=== PATIENT | female | born 1955 | race Caucasian/White ===

== ENCOUNTER → 2017-05-31 | Outpatient (CLI) | payer OTHER ==
[~2017-05-31] MED LIST: ACETAMINOPHEN325 M1 PO; ASPIRIN EC325 M1 PO; ASPIRIN325; COLACE 100 MG100 MG PO; ELIQUIS2.5 MG PO; ENOXAPARIN30 MG/0.1 INJECTION; ENOXAPARIN30 MG/0.3 SUBQ; FLEXERIL PO; HYDROCODONE-AP1 EAC6 PO; MELATONIN3 MG PO; METFORMIN HCL500 MG PO; MIRALAX255 GM; OXYCODONE HCL 55 MG PO; OXYIR5 MG PO; PERCOCET 5-3251 EACH PO; PIOGLITAZONE15 MG; STOOL SOFTENER1 EAC2 PO; TRAMADOL 50 MG50 MG PO; TYLENOL EX-STR500 M2 PO; TYLENOL325 MG PO
[2017-05-31 10:34] LABS: HEMATOCRIT 47.4 % (37.0-47.0); HEMOGLOBIN 15.5 gm/dL (12.0-15.0); MCH 29.6 pg (26.0-34.0); MCHC 32.6 g/dL (28.0-37.0); MCV 90.8 fL (80.0-100.0); MPV 8.7 fl. (7.2-11.1); RBC 5.22 mil/uL (4.20-5.00); RDW-CV 13.4 % (10.5-14.5); WBC 9.4 thou/uL (4.0-11.0)
== END ==
LOC: M.LAB 10:15
PROVIDERS: Orthopaedic Surgery
DX: M25.562 Pain in left knee (principal); M79.89 Other specified soft tissue disorders

== ENCOUNTER → 2017-06-02 | Outpatient (CLI) | payer OTHER | LOC: M.CT 06-01 11:58 | DX: M25.462 Effusion, left knee (principal); Z96.652 Presence of left artificial knee joint ==

== ENCOUNTER → 2017-08-10 | Outpatient (CLI) | payer OTHER ==
[2017-08-10 22:07] LABS: GLYCOHEMOGLOBIN (HGB A1C) 8.4 % (4.8-5.6)
== END ==
LOC: M.LAB 09:12
PROVIDERS: Orthopaedic Surgery
DX: R73.09 Other abnormal glucose (principal)

== ENCOUNTER 2017-08-15 06:28 | Inpatient (IN) | payer OTHER ==
[2017-08-02 09:20] LABS: ABSOLUTE EOSINOPHILS 0.1 thou/uL (0.0-0.7); ABSOLUTE LYMPHOCYTES 2.6 thou/uL (0.8-5.3); ABSOLUTE MONOCYTES 0.6 thou/uL (0.0-1.2); ABSOLUTE NEUTROPHILS 5.8 thou/uL (1.6-8.1); BASOPHILS 0.4 %; EOSINOPHILS 1.6 %; HEMATOCRIT 44.2 % (37.0-47.0); HEMOGLOBIN 14.8 gm/dL (12.0-15.0); LYMPHOCYTES 28.6 %; MCHC 33.5 g/dL (28.0-37.0); MCV 89.5 fL (80.0-100.0); MONOCYTES 6.4 %; MPV 8.3 fl. (7.2-11.1); NUCLEATED RBCS 0 /100WBC; PLATELET COUNT* 257 thou/uL (150-400); RBC 4.94 mil/uL (4.20-5.00); RDW-CV 13.3 % (10.5-14.5); WBC 9.2 thou/uL (4.0-11.0)
[2017-08-02 09:29] LABS: ALBUMIN 3.4 g/dL (3.4-5.0); CALCIUM 9.1 mg/dL (8.5-10.1); CREATININE 0.8 mg/dL (0.6-1.3); POTASSIUM 3.9 mmol/L (3.5-5.1); TOTAL BILIRUBIN 0.5 mg/dL (<0.1-1.0); TOTAL PROTEIN 7.5 g/dL (6.4-8.2)
[2017-08-02 10:30] LABS: ESR (SEDRATE) 8 mm/hr (0-30)
--- NOTE | 2017-08-02 16:20 | EKG ---
[place] [address] ELECTROCARDIOGRAM REPORT Name: SONGDEVORA Room: PRE IN [facility]#: [id number] Admission: Attend Phys: Janice Emanuel Discharge: Date of : 57 Report #: [id number] THIS REPORT FOR: //name// [facility] Test Date: 2017-08-02 Test Time: 09:29:39 Pat Name: DEVORA SONG Department: Room: Gender: F [employer]: : [id number] Requested By: Curtis Jasmine Order Number: [id number] Reading MD: Alonso Castillo Measurements Intervals [place] Rate: 77 P: 53 AL: 144 QRS: -49 QRSD: 103 T: 53 QT: 386 QTc: 437 Interpretive Statements Sinus rhythm Left anterior fascicular block Abnormal R-wave progression, late transition Electronically Signed On 08-02-2017 16:20:13 CDT by Alonso Castillo [email or web address] <ELECTRONICALLY SIGNED> By: Alonso Castillo MD, [facility] 08/02/17 1620 0929 09 Alonso Castillo MD, FACC /EPI
[~2017-08-15] VITALS: Ht 152.4 cm; Wt 86.2 kg
[~2017-08-15 06:28] MED LIST changes: -ELIQUIS2.5 MG PO; -HYDROCODONE-AP1 EAC6 PO; -METFORMIN HCL500 MG PO; -PIOGLITAZONE15 MG
[2017-08-22] MEDS ORDERED: METFORMIN HCL500 MG PO (06:19)
[2017-08-22] MEDS ORDERED: PIOGLITAZONE15 MG (06:20)
[2017-08-22 06:52] VITALS: BP 120/86
[2017-08-22 11:57] VITALS: BP 121/71
--- NOTE | 2017-08-22 12:28 | NUR ---
PATIENT TRANSFERRED FROM PACU TO ROOM 106. ALERT AND ORIETNED. VERY DROWSY. RATES PAIN 7/10. RESP 10 SAT 92% ON 3L. OXYIR GIVEN. ZOFRAN GIVEN. DRESSING TO LEFT KNEE DRY AND INTACT. SCD'S AND RIGHT SAMUEL IN PLACE. VSS. IVF INFUSING ORDERED. AT BEDSIDE. LUNCH PROVIDED. CALL LIGHT WITHIN REACH. WILL CONTINUE TO MONITOR.
--- NOTE | 2017-08-22 12:30 | NUR ---
RECIEVED O.T. ORDERS. WILL DEFER TO P.T. AND NURSING AT THIS TIME. PLEASE ORDER FURTHER O.T. SERVICES IF NEEDED.
[2017-08-22 15:20] VITALS: BP 106/75
--- NOTE | 2017-08-22 16:40 | NUR ---
PATIENT REMAINS ALERT AND ORIENTED. PAIN CONTROLLED WITH OXYIR AND HYDROCODONE. DRESSING TO LEFT KNEE DRY AND INTACT. IVF INFUSING. VOIDED X1 PER BEDPAN. TOLERATED MEAL. O2 AT 4L, SAT 96%. PATIENT WEARS CPAP AT HS. CONT PULSE OX IN PLACE. BED ALARM SET. SCD'S AND SAMUEL IN PLACE. POLAR CARE IN USE. WILL CONTINUE TO MONITOR.
[2017-08-22 20:30] VITALS: BP 99/64
[2017-08-23] VITALS (9 sets, daily range): BP systolic 86–115; BP diastolic 46–60
--- NOTE | 2017-08-23 04:47 | NUR ---
PATIENT REMAINS ALERT AND ORIENTED X4. PAIN CONTROLLED WITH PO MEDICATION. DRESSING TO LEFT KNEE DRY AND INTACT. IV PATENT IN THE LEFT FOREARM INFUSING AT 125 ML/HR. USING BEDPAN THROUGHOUT SHIFT. POLAR PACK IN PLACE. PATIENT WEARS CPAP AT HS. VITAL SIGNS STALE. OXYGEN STABLE ON 3 LITERS OF OXYGEN. CONTINUOUS PULS OX IN PLACE. SCD'S AND SAMUEL HOSE IN PLACE. HOURLY ROUNDING COMPLETE. BED ALARM ON. CALL LIGHT WITHIN REACH. NURSING WILL CONTINUE TO MONITOR.
[2017-08-23 05:14] LABS: HEMATOCRIT 34.7 % (37.0-47.0); HEMOGLOBIN 11.4 gm/dL (12.0-15.0); MCH 29.5 pg (26.0-34.0); MCHC 32.9 g/dL (28.0-37.0); MCV 89.8 fL (80.0-100.0); MPV 8.5 fl. (7.2-11.1); RBC 3.86 mil/uL (4.20-5.00); RDW-CV 13.6 % (10.5-14.5); WBC 12.3 thou/uL (4.0-11.0)
[2017-08-23 05:38] LABS: CALCIUM 8.3 mg/dL (8.5-10.1); CREATININE 0.8 mg/dL (0.6-1.3); POTASSIUM 4.5 mmol/L (3.5-5.1); TOTAL BILIRUBIN 0.4 mg/dL (<0.1-1.0)
--- NOTE | 2017-08-23 08:03 | OP ---
[address] [address] OPERATIVE REPORT Name: DUNCANDEVORA Mi Room: [address] IN ..#: [id number] Admission: 08/22/17 Attend Phys: Janice Emanuel Discharge: Date of : 57 Report #: [id number] THIS REPORT FOR: //name// CC: Marcin Jasmine DICTATED BY: Bogdan Roque DO DATE OF SERVICE: 08/22/2017 PREOPERATIVE DIAGNOSIS: Aseptic loosening, left total knee. POSTOPERATIVE DIAGNOSIS: Aseptic loosening, left total knee. SURGEON: Hussein Fuller DO. DETAIL ASSEMBLER: Sebastien Almeida DO, due to complexity of the case. SECOND ACCOUNT MANAGER B2B: Bogdan Roque DO. PROCEDURE PERFORMED: Revision left total knee arthroplasty with cemented Leo NexGen revision system. ANESTHESIA: General with local capsular block. ESTIMATED BLOOD LOSS: 250 mL. SPECIMENS REMOVED: Soft tissue sent for frozen section. COMPLICATIONS: None. ANTIBIOTICS: Two grams Ancef given intraoperatively after tissue sample sent. TOURNIQUET TIME: 85 minutes at 300. INDICATIONS: The patient is a 62-year-old female that underwent a left total knee arthroplasty many years ago. Unfortunately, she has developed loosening of her femoral component and a painful left total knee. She has been worked up extensively for infection. All results have been negative to this point. She presents today for the above-mentioned procedure. Risks, benefits, complications and alternatives to surgery have been reviewed and discussed with her and she is wishing to proceed. IMPLANTS UTILIZED: Leo NexGen complete knee solution, constrained size C femoral component with a 13 mm x 130 length stem [place] [address] OPERATIVE REPORT Name: DEVORA SONG Room: [address] IN [facility]#: [id number] Admission: 08/22/17 Attend Phys: Janice Emanuel Discharge: Date of : 57 Report #: [id number] distal augments, a size 2 tibial tray with a 10 mm x 75 mm stem extension, a 10-mm medial augment and two bags of Palacos cement with 1.5 grams of vancomycin powder and a 40-mm CCK poly. DESCRIPTION OF PROCEDURE: The patient was taken to the operating suite and placed supine on the OR table. She was given the benefit of general anesthetic. A well-padded tourniquet was placed on the left upper thigh. The patient was then prepped and draped in the usual sterile fashion. Prior to procedure, a timeout was taken confirming correct site, patient and procedure. Procedure began utilizing her prior midline incision. Dissection was carried down through skin and subcutaneous tissues to the level of the joint capsule. Other than scarring of the subcutaneous tissues, there was no sign of infection or necrotic tissue. The VMO and quad tendon was exposed. A second knife was used to perform a medial parapatellar arthrotomy. Significant amount of joint fluid was expressed. This was overall normal-appearing joint fluid. No gross purulence. There was a significant amount of scar tissue seen within the knee and abundant synovium. Once again, no signs of purulence or obvious infection. The medial subperiosteal sleeve was developed off the proximal tibia. The patella was subluxed laterally. The femoral component was completely loose and this was able to be extracted by hand. The poly did have some signs of wear along the anterior medial portion. There was fair amount of bone loss within the distal femur and fibrous ingrowth of tissue around this. This was debrided off. We then extracted the tibial component using flexible osteotome. This was relatively well fixed, but was able to be removed with minimal bone loss. There was a large cyst noted on the medial tibial condyle. This was curetted and all soft tissue was removed. All excess cement was removed as well. The patellar button was removed as well. Synovium was debulked and bone and soft tissue samples were sent for a stat gram stain and frozen section PMNs. This was found to come back negative on all tissue samples. At this time, antibiotics were given. The leg was Esmarched. Tourniquet was inflated up to 300 mmHg. We then proceeded on with revision. The tibial canal was sequentially reamed up to a size 10 mm reamer. Next, proximal tibia cutting block was pinned in place. Minimal bone cut was resected on the lateral side due to the large bone cyst on the medial condyle of the tibia. We took an additional 10 mm, allowing to fill this up with an augment. Cutting block was pinned in place and these cuts were then made. A trial tray was pinned in place. Alignment was used referencing the medial third tibial tubercle and mid talus. Proximal tibia was reamed appropriately and prepared with cruciform punch. Trial insert was then placed and this appeared to fit very well. We then proceeded to the distal tibia. This was sequentially reamed up to a size 13 and over reamed approximately to an 18. Due to the bone loss, it was elected to place 5-mm augments on the posterior condyles as well as a 5-mm augment on the lateral distal condyle as well as a 10-mm augment medially. The trial femur was then placed and this provided a very good fit. No additional bone was resected off the posterior condyles or distal femur. Trial femur and [facility] [address] [place] [address] OPERATIVE REPORT Name: DUNCANDEVORA Mi Room: [address] IN M.R.#: [id number] Admission: 08/22/17 Attend Phys: Janice Emanuel Discharge: Date of : 57 Report #: [id number] trial tibia were then placed. A 14-mm spacer was trialled and this allowed for full extension and good range of motion. All implants were then removed. The knee was thoroughly irrigated with sterile saline and a bone surfaces were cleared off. Cement was mixed on the back table. Components were assembled. Final components were placed with the tibial tray and stem followed by the femur. A 14-mm block was used for compression. All excess cement was removed. Knee was held in a single position while cement adequately cured. After the cement had hardened, a 12 and 14 mm poly were trialed. The 14 provided the best stability and this was placed and secured in place with a locking screw. The knee was again taken through range of motion and found to be very stable. Tourniquet was let down, hemostasis was obtained. Betadine wash was performed. TXA was placed in the wound and allowed to set for 3 minutes. knee was then irrigated. Gloves were changed and a chlorhexidine prep was performed around the incision on the knee. Capsule was closed with #1 Vicryl, followed by interrupted 2-0 Monocryl subcuticular and a running 3-0 Stratafix and Dermabond glue for skin. Sterile dressing was applied. The patient tolerated procedure well. She was transferred to PACU in good stable condition. All sponge and needle counts correct x 2. Dr. Fuller was present for the entirety of the case. Dr. Almeida was required for the complexity of the case. <ELECTRONICALLY SIGNED> By: Hussein Fuller DO 08/23/17 0803 1055 [id number] Fuller DO /nt
--- NOTE | 2017-08-23 16:53 | NUR ---
SPOKE EARLIER WITH PT. SHE HAD JUST RETURNED TO BED FROM THERAPY. SHE LIVES WITH HER . HE WORKS DURING THE DAY. HE CANNOT TAKE OFF BUT SHE SAID DAUGHTER COULD STAY WITH HER MONDAY AND THEN HE WOULD BE OFF THE WEEKEND. SHE HAS WALKER. DISCUSSED HOME HEALTH. SHE USED [facility] LAST TIME AND WOULD LIKE TO USE THEM AGAIN. SHE WOULD LIKE TO TRANSITION TO OUTPT.THERAPY AFTER 2 WEEKS. CM WILL FOLLOW FOR DISCHARGE.
--- NOTE | 2017-08-23 18:10 | NUR ---
ASSUMED CARE OF PATIENT AFTER MORNING REPORT. ALERT AND ORIENTED X4. ASSESSMENT COMPLETED AND CHARTED. VSS ON 4 LITERS 02. PATIENT HAS HAD NO COMPLAINTS OF NAUSEA THIS SHIFT. PAIN HAS BEEN MANAGED WITH PAIN MEDICATION. PATIENTS FLUIDS WERE DISCONTINUED THIS AFTERNOON PATIENT IS EATING AND DRINIKING WELL. PATIENT HAS WORKED WELL WITH THERAPY TODAY AND IS PROGRESSING TOWARD GOALS. HOURLY ROUNDS HAVE BEEN MAINTAINED. CALL LIGHT IS WITHIN REACH. NURSING WILL CONTINUE TO MONITOR.
[2017-08-24 04:10] VITALS: BP 120/73
[2017-08-24 04:24] LABS: HEMATOCRIT 33.7 % (37.0-47.0); MCH 29.8 pg (26.0-34.0); MCHC 32.7 g/dL (28.0-37.0); MCV 90.9 fL (80.0-100.0); MPV 8.3 fl. (7.2-11.1); RBC 3.7 mil/uL (4.20-5.00); RDW-CV 13.3 % (10.5-14.5); WBC 11.7 thou/uL (4.0-11.0)
[2017-08-24 04:42] LABS: ALBUMIN 2.9 g/dL (3.4-5.0); CALCIUM 8.2 mg/dL (8.5-10.1); CREATININE 0.7 mg/dL (0.6-1.3); TOTAL BILIRUBIN 0.6 mg/dL (<0.1-1.0)
--- NOTE | 2017-08-24 04:52 | NUR ---
PATIENT REMAINED ALERT AND ORIENTED X4 THROUGHOUT SHIFT. VITAL SIGNS STABLE ON ROOM AIR. IV PATENT IN THE LEFT FOREARM SALINE LOCKED. TRANSFERRING WITH ASSIST OF ONE WITH THE WALKER AND GAITBELT TO THE BSC. POLAR PACK IN PLACE, SCD'S ON BILAT FEET. THIGH HIGH SAMUEL HOSE ON RIGHT LEG. PAIN MANAGED WITH PO MEDICATION PER ORDERS. REPOSITIONING SELF IN BED. HOURLY ROUNDING COMPLETE. BED IN LOW POSITION WITH BED ALARM IN PLACE. CALL LIGHT WITHIN REACH. NURSING WILL CONTINUE TO MONITOR.
[2017-08-24 07:20] VITALS: BP 119/68
[2017-08-24 09:57] VITALS: BP 115/60
[2017-08-24] MEDS ORDERED: HYDROCODONE-AP1 EAC6 PO (13:08)
[2017-08-24] MEDS ORDERED: ELIQUIS2.5 MG PO (13:09)
[2017-08-24] MEDS ORDERED: OXYCODONE HCL 55 MG PO (13:09)
--- NOTE | 2017-08-24 16:12 | NUR ---
ASSUMED CARE OF PATIENT AFTER MORNING REPORT. ALERT AND ORIENTED X4. ASSESSMENT COMPLETED AND CHARTED. VSS ON ROOM. PATIENTS NAUSEA AND PAIN HAVE BEEN MANAGED WITH MEDICATION. PATIENT WORKED VERY WELL WITH THERAPY TODAY. PATIENT DISCHARGED AT 1600, ALL PERSONAL BELONGINGS, PRESCRIPTIONS AND DISCHARGE INFORMATION SENT WITH PATIENT UPON DISCHARGE.
--- NOTE | 2017-08-25 11:43 | S ---
[place] [address] SURGICAL PATH RPT PROCEDURE Name: DEVORA SONG Room: [address] IN [facility].#: [id number] Admission: 08/22/17 Date of : 57 Discharge: 08/24/17 Report #: [id number] Path Case #: [id number] PATHOLOGY REPORT COLLECTION DATE: 08/22/2017 RECEIVED DATE: 08/23/2017 SUBMITTING PHYS: Dr. Hussein Fuller OTHER PHYS: Dr. Curtis Madison SPECIMEN(S) RECEIVED: A.Left knee tissue-FS B.Left knee bone-FS * * * * * * * * * * * * FINAL DIAGNOSIS: A. Left knee tissue-FS: - Fibroadipose tissue with reactive changes, histiocytic infiltrate, and foreign body giant cells. - Significant acute inflammation not identified. B. Left knee bone-FS: - Bone, fibrous soft tissue, and synovium with focal histiocytic infiltrate and foreign body giant cells. - No evidence of acute osteomyelitis. PATHOLOGIST: Sebastien Rosa M.D. REPORT ELECTRONICALLY SIGNED BY: Sebastien Rosa M.D. DATE/TIME: 08/24/2017 09:24 * * * * * * * * * * * * GROSS PATHOLOGY: A. Received fresh from the OR for frozen section is a specimen labeled with the patient's name, medical record number and "left knee tissue frozen section". The specimen consists of a single portion of red-yellow fibrofatty soft tissue measuring 5 x 3 x 1.5 cm. A telesales representative section is taken and submitted for frozen section in one cassette labeled A1. The remainder of the tissue will be representatively submitted by the PA's. (MAP:[facility]; 08/22/2017) Additional telesales representative sections are submitted in cassettes A2 through A6. ([facility]; 08/23/2017) B. Received fresh from the OR for frozen section is a container labeled with the patient's name, medical record number and "left knee bone frozen section". The specimen consists of multiple fragments of red-pink bone measuring 2.1 x 1.7 x 0.3 cm in aggregate. At the request of the surgeon, a frozen [place] [address] SURGICAL PATH RPT PROCEDURE Name: DEVORA SONG Room: [address]#: [id number] Admission: 08/22/17 Date of : 57 Discharge: 08/24/17 Report #: [id number] Path Case #: [id number] tissue, however, due to the hardness; the tissue is deferred to permanents for histological examination. The remainder of the tissue will be decalcified and grossed in by the PA's. (MAP:josefina; 08/22/2017) The specimen is filtered and entirely submitted in cassette B1, following decalcification. ([facility]; 08/23/2017) FROZEN SECTION DIAGNOSIS: (Sebastien Rosa M.D.) FSA1. Left knee tissue frozen section: - No significant acute inflammation, approximately 0 neutrophils in a high powered field. FSB1. Left knee bone frozen section: - Won't cut, defer to permanent. These findings were discussed with Dr. Fuller on 08/22/2017 at 08:29 a.m. Testing performed by [facility] at [facility], [address], [place] [address]. CLINICAL HISTORY: Pre-op diagnosis: Loosening of tibial component, left knee pain Post-op diagnosis: Left knee pain, loosening of total knee components INITIAL CPT CODE(S): A; 90993, 66008 B; 99659, 67167, 79984 Professional services performed by [facility], [address] [place] [address]. Technical services performed by [facility], [address] [place] [address], [address], [place] [address]. [facility] [address] [place] [address] PHONE: [phone] DIRECTOR: Josué Faye M.D. * * * END OF REPORT * * *
== END 2017-08-24 16:00 | disposition home health service (06) | DRG 467 ==
LOC: M.PRE 06:28 → M.TBA 08-22 06:04 → M.PRE 08-22 10:06 → M.ORTHSURG 08-22 11:19
PROVIDERS: ADMIT Internal Medicine
PROC: 0SPD0JZ Removal of Synthetic Substitute from Left Knee Joint, Open Approach (ICD-10-PCS; principal; 2017-08-22)
PROC: 0SRD0J9 Replacement of Left Knee Joint with Synthetic Substitute, Cemented, Open Approach (ICD-10-PCS; principal; 2017-08-22)
DX: T84.033A Mechanical loosening of internal left knee prosthetic joint, initial encounter (principal); E44.1 Mild protein-calorie malnutrition; E11.65 Type 2 diabetes mellitus with hyperglycemia; M17.12 Unilateral primary osteoarthritis, left knee; Y83.8 Other surgical procedures as the cause of abnormal reaction of the patient, or of later complication, without mention of misadventure at the time of the procedure; Z68.37 Body mass index [BMI] 37.0-37.9, adult; Y92.89 Other specified places as the place of occurrence of the external cause; Z79.01 Long term (current) use of anticoagulants; Z79.84 Long term (current) use of oral hypoglycemic drugs; Z79.899 Other long term (current) drug therapy; Z90.710 Acquired absence of both cervix and uterus; Z88.2 Allergy status to sulfonamides; Z88.8 Allergy status to other drugs, medicaments and biological substances